=== PATIENT | female | born 1980 | race Caucasian/White ===

== ENCOUNTER 2016-07-18 15:25 | Inpatient (IN) | payer OTHER ==
[~2016-07-18] VITALS: Ht 167.6 cm; Wt 115.0 kg
[2016-07-26] VITALS (53 sets, daily range): BP systolic 99–131; BP diastolic 52–88; PULSE 66–96; TEMP 97.9–98.8
[2016-07-26] MEDS ORDERED: SYNTHROID0.125 MG/T PO (06:20)
[2016-07-26 08:16] LABS: BASO % 0.4 % (0.0-2.0); EOS # 0.1 (0.0-0.7); EOS % 0.8 % (0-4.0); GRAN % 70.5 % (42.2-75.2); LYMPH # 1.9 (1.2-3.4); LYMPH % 19.4 % (20.0-51.0); MEAN CELL VOLUME 88 fl (80.0-100.0); MEAN CORPUSCULAR HGB CONC 35 g/dl (33.0-37.0); MEAN PLATELET VOLUME 10.6 fl (7.4-10.4); MONO # 0.8 (0.1-0.6); MONO % 8.4 % (1.7-9.3); PLATELET COUNT 245 K/mm3 (130-400); RED BLOOD COUNT 3.91 M/mm3 (4.10-5.30); REDCELL DISTRIBUTION WIDTH-CV 13.6 % (11.5-14.5); WHITE BLOOD COUNT 9.9 K/mm3 (4.8-10.8)
[2016-07-26 08:24] LABS: HEMATOCRIT 34.5 % (37.0-47.0); HEMOGLOBIN 11.9 g/dl (12.5-16.0); MEAN CORPUSCULAR HEMOGLOBIN 30 pg (27.0-31.0)
[2016-07-26] MEDS ORDERED: PRENATAL1 TA7 PO (08:36)
[2016-07-26] MEDS ORDERED: OSCAL 500 TAB500 MG PO (08:37)
[2016-07-27 03:00] VITALS: BP 128/86; PULSE 75; TEMP 97.9
[2016-07-27] MEDS ORDERED: PERCOCET 325 MG1 TA2 PO (08:18)
[2016-07-27] MEDS ORDERED: IBU800 M1 PO (08:18)
[2016-07-27 08:20] VITALS: BP 131/75; PULSE 79; TEMP 98.5
[2016-07-27 21:45] VITALS: BP 124/72; PULSE 65; TEMP 97.7
[2016-07-28 09:35] VITALS: BP 131/80; PULSE 75; TEMP 97.8
== END 2016-07-28 15:50 | disposition home or self-care (01) | DRG 775 ==
LOC: LDR 07-26 07:15 → OB 07-26 22:00 → EDSTATUS 08-02 08:21 → LDRO 08-02 15:24
PROVIDERS: Obstetrics & Gynecology
PROC: 10E0XZZ Delivery of Products of Conception, External Approach (ICD-10-PCS; principal; 2016-07-26)
DX: O99.824 Streptococcus B carrier state complicating childbirth (principal); O69.81X0 Labor and delivery complicated by cord around neck, without compression, not applicable or unspecified; O09.523 Supervision of elderly multigravida, third trimester; Z3A.39 39 weeks gestation of pregnancy; Z37.0 Single live birth
CPT/HCPCS: J2540; J2590; J2795; J7120